=== PATIENT | male | born 1935 | race Caucasian/White ===

== ENCOUNTER 2025-04-27 18:38 | Inpatient (IN) | payer MEDICARE, MEDICAID ==
[~2025-04-27] VITALS: Ht 167.6 cm; Wt 59.1 kg
[~2025-04-27 18:38] MED LIST: ASCO-339 PO; ASPI-1160 PO; ASPI-1497 PO; CHOL400D7 PO; FLUT15.844 BOTHNSTRLS; ICOS1CAP PO; LEVO100T9 PO; LINA145C PO; MAGN400T26 MT; MEGE625O5 PO; MULT-477 PO; MULT9LIQ6 PO; NEBI5TAB9 PO; NYST15CR36 TP; QUET50TA23 PO; RIVA1PAT TP; SOLI5TAB PO; VORT10TA PO; [UNRECOGNIZED DRUG - CODE] PO
[2025-04-27 18:40] VITALS: O2SAT 94
[2025-04-27] MEDS: SODIUM CHLORIDE 0.9% 500 ML IV ONE (19:20)
[2025-04-27] MEDS: PIPERACILLIN/TAZO 3.375G/50ML 50 ML IV ONE (19:20)
[2025-04-27] MEDS: VANCOMYCIN 1G PREMIX 200 ML IV ONE (19:58)
[2025-04-27 20:10] LABS: CLARITY URINE TURBID (CLEAR); COLOR URINE YELLOW (YELLOW); GLUCOSE URINE NEGATIVE (NEGATIVE); KETONES URINE NEGATIVE (NEGATIVE); LEUKOCYTE ESTERASE URINE 3+ (NEGATIVE); NITRITE URINE NEGATIVE (NEGATIVE); OCCULT BLOOD URINE 2+ (NEGATIVE); PH URINE 6.0 (4.5-8.0); PROTEIN URINE 2+ (NEGATIVE); SPECIFIC GRAVITY URINE 1.018 (1.005-1.030); UROBILINOGEN URINE 1.0 E.U./dL (0.2-1.0)
[2025-04-27 20:16] LABS: BASOPHILS % 0.4 % (0.0-2.0); EOSINOPHILS % 0.1 % (0.0-5.0); LYMPHOCYTES % 9.3 % (20.0-50.0); MEAN PLATELET VOLUME 10.4 fl (7.4-10.4); MONOCYTES % 5.1 % (2.0-8.0); NEUTROPHILS % 85.1 % (40.0-76.0); PLATELET 190 x1000/uL (130-400); RED BLOOD CELL COUNT 1.94 mill/uL (4.7-6.1); RED CELL DISTRIBUTION WIDTH 15.0 % (11.6-14.6)
[2025-04-27 20:20] LABS: HEMATOCRIT. 17.4 % (42.0-52.0); HEMOGLOBIN. 5.4 g/dL (14.0-18.0)
[2025-04-27 20:22] LABS: WBC URINE 15-25 /hpf (0-2)
[2025-04-27 20:23] LABS: BACTERIA URINE 3+; SQUAMOUS EPITHELIAL CELL URINE RARE /lpf (RARE/1+)
[2025-04-27 20:27] LABS: INR 1.0
[2025-04-27 20:43] LABS: PROTEIN TOTAL 5.7 g/dL (6.0-8.3); TROPONIN I HIGH SENSITIVITY 18 ng/L (3.0-53); UREA NITROGEN BLOOD 38 mg/dL (9-23)
[2025-04-27 20:44] LABS: ASPARTATE AMINOTRANSFERASE 62 IU/L (<34); BILIRUBIN DIRECT 0.2 mg/dL (<=3.0)
[2025-04-27 20:45] LABS: BILIRUBIN TOTAL 0.4 mg/dL (0.1-1.0)
[2025-04-27 21:03] LABS: CREATININE 1.4 mg/dL (0.6-1.3)
[2025-04-27 23:40] VITALS: O2SAT 100
[2025-04-28] VITALS (22 sets, daily range): BP systolic 87–124; BP diastolic 44–66; PULSE 23–113; RESP 17–25; TEMP 36.5–37.4; O2SAT 96–100
[2025-04-28] MEDS: SODIUM CHLORIDE 0.9% 1,000 ML IV ONE (00:15)
[2025-04-28] MEDS: IOHEXOL-350 100 ML BOTTLE ONE (00:32)
[2025-04-28] MEDS: IOHEXOL-300 100 ML BOTTLE ONE (00:33)
[2025-04-28] MEDS ORDERED: ONDANSETRON HCL 4MG/2ML INJ IV PRN (03:30)
[2025-04-28] MEDS ORDERED: IPRATROPIUM/ALBUTEROL 0.5-3(2.5)MG/3ML NEB HHN PRN (03:30)
[2025-04-28] MEDS ORDERED: CLONIDINE 0.1MG TABLET PO PRN (03:30)
[2025-04-28] MEDS ORDERED: DOCUSATE SODIUM 100MG CAPSULE PO PRN (03:30)
[2025-04-28] MEDS ORDERED: ACETAMINOPHEN 325MG TABLET PO PRN (03:30)
[2025-04-28] MEDS ORDERED: LORAZEPAM 0.5MG TABLET PO PRN (03:30)
[2025-04-28 04:04] LABS: BG BASE EXCESS -1.6 mmol/L (-2.0-3.0); BG CARBOXYHEMOGLOBIN 0.7 % (0.5-1.5); BG DEOXYHEMOGLOBIN 7.3 % (0.0-5.0); BG FLOW(L/min) 35.00 L/min; BG FRACTION INSPIRED OXYGEN 100; BG HCO3 ACT 20.5 mmol/L (21.0-28.0); BG METHEMOGLOBIN 0.3 % (0.5-1.5); BG OXYGEN SATURATION 92.6 % (94.0-98.0); BG OXYHEMOGLOBIN 91.7 % (94.0-98.0); BG PCO2 25.6 mmHg (35.0-48.0); BG PH 7.522 (7.350-7.450); BG PO2 63.7 mmHg (83.0-108.0); BG SAMPLE SITE RIGHT RADIAL; BG TOTAL HEMOGLOBIN 8.8 g/dL (13.5-17.5); BG VENT MODE VAPOTHERM
[2025-04-28] MEDS: DEXT 5%/0.9% NACL 1,000 ML IV SCH (04:50)
[2025-04-28] MEDS: BLOOD SUGAR DIAGNOSTIC STRIP TEST SCH (08:30)
[2025-04-28] MEDS ORDERED: SODIUM CHLORIDE 0.9% 1,000 ML IV SCH (09:45)
[2025-04-28] MEDS: PIPERACILLIN/TAZO 3.375G/50ML 50 ML IV SCH (10:09)
[2025-04-28 11:01] LABS: FOLIC ACID (FOLATE) SERUM 13.34 ng/mL (>5.38)
[2025-04-28 11:02] LABS: VITAMIN B12 SERUM 464 pg/mL (211-911)
[2025-04-28] MEDS: VANCOMYCIN 500MG/100ML IV SCH (15:05)
[2025-04-28] MEDS: SODIUM CHLORIDE 10% FOR INH 15ML NEB INH SCH (17:30)
[2025-04-28] MEDS: MIDODRINE HCL 5MG TABLET PO SCH ×2 (18:01→22:46)
[2025-04-28] MEDS: SODIUM CHLORIDE 0.9% (SEPSIS BOLUS) IV NR ×2 (18:02)
[2025-04-28] MEDS ORDERED: VANCOMYCIN 750MG PREMIX 150 ML IV SCH (20:00)
[2025-04-29] VITALS (17 sets, daily range): BP systolic 92–115; BP diastolic 51–68; PULSE 60–81; RESP 16–30; TEMP 36.3–36.8; O2SAT 93–100
[2025-04-29 06:59] LABS: HEMATOCRIT. 28.3 % (42.0-52.0); MEAN PLATELET VOLUME 9.2 fl (7.4-10.4); PLATELET 238 x1000/uL (130-400); RED BLOOD CELL COUNT 3.38 mill/uL (4.7-6.1); RED CELL DISTRIBUTION WIDTH 19.5 % (11.6-14.6)
[2025-04-29 07:16] LABS: HEMOGLOBIN. 9.0 g/dL (14.0-18.0)
[2025-04-29 07:25] LABS: CREATININE 1.0 mg/dL (0.6-1.3); UREA NITROGEN BLOOD 35 mg/dL (9-23)
[2025-04-29 07:27] LABS: PHOSPHORUS 2.6 mg/dL (2.5-4.9)
[2025-04-29] MEDS: SODIUM CHLORIDE 0.9% 1,000 ML IV SCH (09:32)
[2025-04-29] MEDS: VANCOMYCIN 750MG PREMIX 150 ML IV SCH (21:45)
[2025-04-30] VITALS (14 sets, daily range): BP systolic 102–131; BP diastolic 54–72; PULSE 71–91; RESP 18–29; TEMP 36.8–37.5; O2SAT 93–100
[2025-04-30 06:06] LABS: BASOPHILS % 0.3 % (0.0-2.0); EOSINOPHILS % 0.3 % (0.0-5.0); HEMATOCRIT. 24.2 % (42.0-52.0); HEMOGLOBIN. 7.7 g/dL (14.0-18.0); LYMPHOCYTES % 7.9 % (20.0-50.0); MEAN PLATELET VOLUME 8.9 fl (7.4-10.4); MONOCYTES % 3.7 % (2.0-8.0); NEUTROPHILS % 87.8 % (40.0-76.0); PLATELET 272 x1000/uL (130-400); RED BLOOD CELL COUNT 2.89 mill/uL (4.7-6.1); RED CELL DISTRIBUTION WIDTH 19.4 % (11.6-14.6)
[2025-04-30 06:09] LABS: ADD RBC MORPHOLOGY YES
[2025-04-30 06:27] LABS: CREATININE 1.0 mg/dL (0.6-1.3); UREA NITROGEN BLOOD 27 mg/dL (9-23)
[2025-04-30 09:52] LABS: PLATELET ESTIMATE NORMAL
[2025-04-30] MEDS: GUAIFENESIN 200MG/10ML SUGAR FREE UDC PO PRN (10:45)
[2025-04-30] MEDS ORDERED: SUCRALFATE 1G TABLET PO SCH (12:30)
[2025-04-30 13:13] LABS: BAND% 14.0 % (1.0-6.0); EOSINOPHILS % MANUAL 1.0 % (0.0-5.0); LYMPHOCYTES % MANUAL 7.0 % (20.0-50.0); METAMYELOCYTES % 3.0 % (0-0); MONOCYTES % MANUAL 2.0 % (2.0-8.0); NEUTROPHILS % MANUAL 73.0 % (45.0-75.0); NUCLEATED RED BLOOD CELLS 2 /100 WBC; PLATELET ESTIMATE NORMAL
[2025-04-30] MEDS: SUCRALFATE 1G TABLET PO SCH (15:16)
[2025-05-01] VITALS (13 sets, daily range): BP systolic 92–138; BP diastolic 52–70; PULSE 69–94; RESP 21–31; TEMP 36.5–37.9; O2SAT 90–100
[2025-05-01 07:47] LABS: HEMATOCRIT. 26.0 % (42.0-52.0); HEMOGLOBIN. 8.0 g/dL (14.0-18.0); MEAN PLATELET VOLUME 8.4 fl (7.4-10.4); PLATELET 340 x1000/uL (130-400); RED BLOOD CELL COUNT 3.04 mill/uL (4.7-6.1); RED CELL DISTRIBUTION WIDTH 19.9 % (11.6-14.6)
[2025-05-01 07:49] LABS: CREATININE 0.9 mg/dL (0.6-1.3); UREA NITROGEN BLOOD 21 mg/dL (9-23)
[2025-05-01] MEDS: PANTOPRAZOLE SODIUM 40 MG/VIAL IV SCH (08:49)
[2025-05-01] MEDS: ASCORBIC ACID 500 MG TABLET PO SCH (10:43)
[2025-05-01] MEDS: FERROUS SULFATE 300MG/5ML UDC GT SCH (10:43)
[2025-05-01 20:20] LABS: LYMPHOCYTES % MANUAL 12.0 % (20.0-50.0); MONOCYTES % MANUAL 11.0 % (2.0-8.0); NEUTROPHILS % MANUAL 77.0 % (45.0-75.0); PLATELET ESTIMATE NORMAL
[2025-05-02] VITALS (12 sets, daily range): BP systolic 108–141; BP diastolic 49–82; PULSE 78–91; RESP 19–27; TEMP 36.4–37.6; O2SAT 91–95
[2025-05-02 06:15] LABS: HEMATOCRIT. 28.2 % (42.0-52.0); HEMOGLOBIN. 9.0 g/dL (14.0-18.0); MEAN PLATELET VOLUME 8.0 fl (7.4-10.4); PLATELET 410 x1000/uL (130-400); RED BLOOD CELL COUNT 3.35 mill/uL (4.7-6.1); RED CELL DISTRIBUTION WIDTH 19.9 % (11.6-14.6)
[2025-05-02 06:28] LABS: CREATININE 0.8 mg/dL (0.6-1.3)
[2025-05-02 06:30] LABS: UREA NITROGEN BLOOD 18 mg/dL (9-23)
[2025-05-02 06:32] LABS: PHOSPHORUS 2.0 mg/dL (2.5-4.9)
[2025-05-02] MEDS ORDERED: VANCOMYCIN 1GM PMX (XELLIA) 200 ML IV SCH (09:00)
[2025-05-02] MEDS ORDERED: VANCOMYCIN 1G PREMIX 200 ML IV SCH (11:18)
[2025-05-02] MEDS: ACETAMINOPHEN 325MG TABLET PO PRN (13:32)
[2025-05-02] MEDS ORDERED: AZITHROMYCIN 500MG/250ML 250 ML IV SCH (13:45)
[2025-05-02] MEDS: VANCOMYCIN 1G PREMIX 200 ML IV SCH (14:58)
[2025-05-02 16:47] LABS: EOSINOPHILS % MANUAL 1.0 % (0.0-5.0); LYMPHOCYTES % MANUAL 6.0 % (20.0-50.0); MONOCYTES % MANUAL 16.0 % (2.0-8.0); NEUTROPHILS % MANUAL 77.0 % (45.0-75.0); PLATELET ESTIMATE INCREASED
[2025-05-02] MEDS: DOXYCYCLINE 100MG/100ML 100 ML IV SCH (21:06)
[2025-05-02] MEDS ORDERED: IOHEXOL-300 100 ML BOTTLE ONE (23:17)
[2025-05-03] VITALS (12 sets, daily range): BP systolic 103–143; BP diastolic 62–87; PULSE 77–93; RESP 19–27; TEMP 36.6–37.2; O2SAT 91–97
[2025-05-03 07:28] LABS: HEMATOCRIT. 27.5 % (42.0-52.0); HEMOGLOBIN. 8.7 g/dL (14.0-18.0); MEAN PLATELET VOLUME 8.0 fl (7.4-10.4); PLATELET 455 x1000/uL (130-400); RED BLOOD CELL COUNT 3.26 mill/uL (4.7-6.1); RED CELL DISTRIBUTION WIDTH 19.8 % (11.6-14.6)
[2025-05-03 07:35] LABS: CREATININE 0.7 mg/dL (0.6-1.3); UREA NITROGEN BLOOD 13 mg/dL (9-23)
[2025-05-03] MEDS: FUROSEMIDE 20MG/2ML VIAL IVP SCH (12:42)
[2025-05-03 14:06] LABS: BAND% 6.0 % (1.0-6.0); LYMPHOCYTES % MANUAL 7.0 % (20.0-50.0); MONOCYTES % MANUAL 11.0 % (2.0-8.0); NEUTROPHILS % MANUAL 76.0 % (45.0-75.0); PLATELET ESTIMATE INCREASED
[2025-05-04] VITALS (12 sets, daily range): BP systolic 120–150; BP diastolic 60–113; PULSE 83–105; RESP 22–30; TEMP 36.9–37.7; O2SAT 89–98
[2025-05-04] MEDS: PIPERACILLIN/TAZO 3.375G/50ML 50 ML IV SCH (10:53)
[2025-05-04] MEDS ORDERED: DOXY100C5 MT (11:11)
[2025-05-04] MEDS ORDERED: CEFE2VIA IJ (11:11)
[2025-05-04] MEDS ORDERED: ASPIRIN 81MG TABLET PO SCH (15:00)
[2025-05-04] MEDS: ENOXAPARIN 40MG/0.4ML SYR SUBCUT SCH (15:00)
[2025-05-04 17:46] LABS: HEMATOCRIT. 24.8 % (42.0-52.0); HEMOGLOBIN. 8.0 g/dL (14.0-18.0); MEAN PLATELET VOLUME 8.1 fl (7.4-10.4); PLATELET 624 x1000/uL (130-400); RED BLOOD CELL COUNT 3.03 mill/uL (4.7-6.1); RED CELL DISTRIBUTION WIDTH 19.2 % (11.6-14.6)
[2025-05-04 17:59] LABS: CREATININE 0.8 mg/dL (0.6-1.3); UREA NITROGEN BLOOD 15 mg/dL (9-23)
[2025-05-04 20:20] LABS: LYMPHOCYTES % MANUAL 13.0 % (20.0-50.0); MONOCYTES % MANUAL 8.0 % (2.0-8.0); NEUTROPHILS % MANUAL 79.0 % (45.0-75.0); PLATELET ESTIMATE INCREASED
[2025-05-05] VITALS: BP 113/76; PULSE 76; RESP 19; TEMP 37.4; O2SAT 97
[2025-05-05 04:00] VITALS: BP 113/69; PULSE 79; RESP 26; TEMP 37.5; O2SAT 99
[2025-05-05] MEDS ORDERED: LIDOCAINE HCL 1% 10 MG/ML 10ML VIAL ONE (07:13)
[2025-05-05 08:00] VITALS: BP 120/62; PULSE 86; RESP 24; TEMP 37.1; O2SAT 98
[2025-05-05 08:21] LABS: HEMATOCRIT. 23.7 % (42.0-52.0); HEMOGLOBIN. 7.7 g/dL (14.0-18.0); MEAN PLATELET VOLUME 8.0 fl (7.4-10.4); PLATELET 606 x1000/uL (130-400); RED BLOOD CELL COUNT 2.90 mill/uL (4.7-6.1); RED CELL DISTRIBUTION WIDTH 19.2 % (11.6-14.6)
[2025-05-05 08:26] LABS: CREATININE 0.8 mg/dL (0.6-1.3); UREA NITROGEN BLOOD 20 mg/dL (9-23)
[2025-05-05 12:00] VITALS: BP 117/58; PULSE 82; RESP 27; TEMP 36.9; O2SAT 95
[2025-05-05 16:00] VITALS: BP 101/68; PULSE 81; RESP 26; TEMP 36.7; O2SAT 98
[2025-05-05 17:38] VITALS: BP 112/60; PULSE 81; RESP 26; TEMP 98.1
[2025-05-06 17:26] LABS: BAND% 1.0 % (1.0-6.0); EOSINOPHILS % MANUAL 1.0 % (0.0-5.0); LYMPHOCYTES % MANUAL 9.0 % (20.0-50.0); MONOCYTES % MANUAL 9.0 % (2.0-8.0); NEUTROPHILS % MANUAL 80.0 % (45.0-75.0); PLATELET ESTIMATE INCREASED
== END 2025-05-05 19:56 | DRG 698 ==
LOC: ER 18:38 → EDBEDREQ 21:42 → 7WST 23:42 → EDBEDREQSVC 23:42 → 5EST 04-28 02:11
PROVIDERS: ADMIT Internal Medicine; ATTEND Internal Medicine
PROC: 5A0945A Assistance with Respiratory Ventilation, 24-96 Consecutive Hours, High Flow/Velocity Cannula (ICD-10-PCS; 2025-04-27)
PROC: 30233N1 Transfusion of Nonautologous Red Blood Cells into Peripheral Vein, Percutaneous Approach (ICD-10-PCS; principal; 2025-04-28)
PROC: 5A0935A Assistance with Respiratory Ventilation, Less than 24 Consecutive Hours, High Flow/Velocity Cannula (ICD-10-PCS; 2025-05-02)
PROC: 02HV33Z Insertion of Infusion Device into Superior Vena Cava, Percutaneous Approach (ICD-10-PCS; 2025-05-05)
PROC: B548ZZA Ultrasonography of Superior Vena Cava, Guidance (ICD-10-PCS; 2025-05-05)
DX: T83.511A Infection and inflammatory reaction due to indwelling urethral catheter, initial encounter (principal); A41.9 Sepsis, unspecified organism; E43 Unspecified severe protein-calorie malnutrition; J18.9 Pneumonia, unspecified organism; J69.0 Pneumonitis due to inhalation of food and vomit; J96.01 Acute respiratory failure with hypoxia; G93.41 Metabolic encephalopathy; K26.4 Chronic or unspecified duodenal ulcer with hemorrhage; E87.4 Mixed disorder of acid-base balance; N13.6 Pyonephrosis; N17.9 Acute kidney failure, unspecified; B96.5 Pseudomonas (aeruginosa) (mallei) (pseudomallei) as the cause of diseases classified elsewhere; F02.84 Dementia in other diseases classified elsewhere, unspecified severity, with anxiety; I50.22 Chronic systolic (congestive) heart failure; I13.0 Hypertensive heart and chronic kidney disease with heart failure and stage 1 through stage 4 chronic kidney disease, or unspecified chronic kidney disease; I27.20 Pulmonary hypertension, unspecified; G20.A1 Parkinson's disease without dyskinesia, without mention of fluctuations; E03.9 Hypothyroidism, unspecified; D50.9 Iron deficiency anemia, unspecified; E11.22 Type 2 diabetes mellitus with diabetic chronic kidney disease; N18.9 Chronic kidney disease, unspecified; R47.01 Aphasia; L89.150 Pressure ulcer of sacral region, unstageable; L89.620 Pressure ulcer of left heel, unstageable; R13.10 Dysphagia, unspecified; Z93.1 Gastrostomy status; K21.9 Gastro-esophageal reflux disease without esophagitis; K80.20 Calculus of gallbladder without cholecystitis without obstruction; N21.0 Calculus in bladder; E86.0 Dehydration; N28.1 Cyst of kidney, acquired; X58.XXXA Exposure to other specified factors, initial encounter; S20.222A Contusion of left back wall of thorax, initial encounter; Z66 Do not resuscitate; S70.02XA Contusion of left hip, initial encounter; Z79.899 Other long term (current) drug therapy; Z74.01 Bed confinement status; Y93.89 Activity, other specified; Z68.21 Body mass index [BMI] 21.0-21.9, adult; Y92.89 Other specified places as the place of occurrence of the external cause; Y99.8 Other external cause status; Y84.6 Urinary catheterization as the cause of abnormal reaction of the patient, or of later complication, without mention of misadventure at the time of the procedure
CPT/HCPCS: 36415; 36573; 36600; 71045; 71275; 74177; 76604; 80048; 80076; 80202; 81003; 82270; 82375; 82607; 82746; 82805; 82962; 83540; 83550; 83605; 83735; 83880; 84100; 84145; 84484; 85014; 85018; 85025; 85044; 85379; 86850; 86900; 86920; 87077; 87186; 93005; 93970; 94070; 94640; 94664; 98960; 99291; A4606; C1725; J1650; J1938; J2003; J2470; J2543; J3373; J3490; J7030; J7131; P9016; Q9967